=== PATIENT | male | born 1980 | race Caucasian/White ===

== ENCOUNTER 2017-10-02 10:16 | Emergency (ER) | payer OTHER ==
[~2017-10-02] VITALS: Ht 187.9 cm; Wt 117.9 kg
== END 2017-10-02 11:50 | disposition home or self-care (01) ==
LOC: ED 10:16
DX: S93.401A Sprain of unspecified ligament of right ankle, initial encounter (principal); W17.2XXA Fall into hole, initial encounter; Y93.89 Activity, other specified; Y92.89 Other specified places as the place of occurrence of the external cause; Y99.8 Other external cause status